=== PATIENT | female | born 1935 | race Caucasian/White ===

== ENCOUNTER 2016-06-28 22:31 | Emergency (ER) | payer OTHER ==
[~2016-06-28] VITALS: Ht 142.2 cm; Wt 50.9 kg
[~2016-06-28 22:31] MED LIST: ATEN50TA PO; HYDR25TA PO
[2016-06-28] MEDS ORDERED: ACETAMINOPHEN 325 MG TABLET PO ONE (23:00)
[2016-06-28 23:26] LABS: BASOPHILS # (AUTO) 0.02 K/uL (0.00-0.20); BASOPHILS % (AUTO) 0.2 % (0.0-2.0); EOSINOPHILS # (AUTO) 0.04 K/uL (0.00-0.70); EOSINOPHILS % (AUTO) 0.33 % (1.0-6.0); HEMOGLOBIN 11.7 g/dL (12.0-16.0); LYMPHOCYTES # (AUTO) 0.9 K/uL (1.0-4.8); LYMPHOCYTES % (AUTO) 7.7 % (22.0-44.0); MEAN CORPUSCULAR HEMOGLOBIN 30.2 pg (26.0-34.0); MEAN CORPUSCULAR HGB CONC 34.4 G/dL (31.0-37.0); MEAN CORPUSCULAR VOLUME 88 fL (80-100); MONOCYTES # (AUTO) 0.2 K/uL (0.1-1.0); MONOCYTES % (AUTO) 1.3 % (2.0-9.0); NEUTROPHILS # (AUTO) 11.1 K/uL (1.8-7.7); PLATELET COUNT (AUTO) 158 K/uL (150-450); RED BLOOD CELL COUNT(AUTO) 3.88 MIL/uL (4.00-5.20); RED CELL DISTRIBUTION WIDTH 12.4 % (11.5-14.5); WHITE BLOOD COUNT (AUTO) 12.2 K/uL (4.5-11.0)
[2016-06-28 23:27] LABS: NEUTROPHILS % (AUTO) 90.6 % (40.0-70.0)
[2016-06-28 23:36] LABS: ANION GAP 9 mmol/L (8-16); CALCIUM, TOTAL 8.5 mg/dL (8.8-10.5); CARBON DIOXIDE 28 mmol/L (22-29); CHLORIDE 99 mmol/L (98-107); CREATININE 0.89 mg/dL (0.60-1.30); GLOMERULAR FILTR. RATE CALC > 60 mL/min (>60); POTASSIUM 3.4 mmol/L (3.5-5.1); SODIUM SERUM 136 mmol/L (136-145); UREA NITROGEN, BLOOD 12 mg/dL (7-18)
[2016-06-28 23:42] LABS: ALANINE AMINOTRANSFERASE 20 U/L (12-78); ALBUMIN 3.7 g/dL (3.4-5.0); ASPARTATE AMINOTRANSFERASE 22 U/L (15-37); BILIRUBIN,TOTAL 0.7 mg/dL (0.1-1.0); CREATINE KINASE, TOTAL 70 U/L (26-192); TOTAL PROTEIN, SERUM 7.4 g/dL (6.4-8.2)
[2016-06-29 03:29] LABS: APPEARANCE,URINE CLEAR (CLEAR); GLUCOSE, URINE (UA) NEGATIVE (NEGATIVE); KETONES,URINE TRACE mg/dL (NEGATIVE); LEUKOCYTE ESTERASE ,URINE TRACE (NEGATIVE); OCCULT BLOOD,URINE NEGATIVE (NEGATIVE); PROTEIN,URINE TRACE (NEGATIVE)
[2016-06-29 03:30] LABS: ADD UA MICROSCOPIC YES
[2016-06-29 04:04] LABS: RBC,URINE 0-2 /HPF (0-2); SQUAMOUS EPITHELIAL CELL,UR Rare /LPF (None Seen)
[2016-06-29 04:36] VITALS: BP 122/63
== END 2016-06-29 04:36 | disposition home or self-care (01) ==
LOC: EMS 22:33
DX: J06.9 Acute upper respiratory infection, unspecified (principal); N39.0 Urinary tract infection, site not specified; I10 Essential (primary) hypertension
CPT/HCPCS: 83605; 87040; 93005; 99285

== ENCOUNTER 2016-09-13 00:35 | Emergency (ER) | payer OTHER ==
[~2016-09-13] VITALS: Ht 142.2 cm; Wt 52.5 kg
[2016-09-13 01:46] LABS: BASOPHILS # (AUTO) 0.03 K/uL (0.00-0.20); BASOPHILS % (AUTO) 0.3 % (0.0-2.0); EOSINOPHILS # (AUTO) 0.23 K/uL (0.00-0.70); EOSINOPHILS % (AUTO) 2.47 % (1.0-6.0); HEMATOCRIT 35.5 % (36-46); HEMOGLOBIN 12.1 g/dL (12.0-16.0); LYMPHOCYTES # (AUTO) 1.9 K/uL (1.0-4.8); LYMPHOCYTES % (AUTO) 20.1 % (22.0-44.0); MEAN CORPUSCULAR HEMOGLOBIN 30.4 pg (26.0-34.0); MEAN CORPUSCULAR VOLUME 89 fL (80-100); MONOCYTES # (AUTO) 0.8 K/uL (0.1-1.0); MONOCYTES % (AUTO) 8.5 % (2.0-9.0); NEUTROPHILS # (AUTO) 6.3 K/uL (1.8-7.7); NEUTROPHILS % (AUTO) 68.6 % (40.0-70.0); PLATELET COUNT (AUTO) 190 K/uL (150-450); RED BLOOD CELL COUNT(AUTO) 3.97 MIL/uL (4.00-5.20); RED CELL DISTRIBUTION WIDTH 12.9 % (11.5-14.5); WHITE BLOOD COUNT (AUTO) 9.2 K/uL (4.5-11.0)
[2016-09-13 02:09] LABS: CALCIUM, TOTAL 9.1 mg/dL (8.8-10.5); CREATININE 0.93 mg/dL (0.60-1.30); POTASSIUM 3.7 mmol/L (3.5-5.1)
[2016-09-13 02:14] LABS: ALBUMIN 3.7 g/dL (3.4-5.0); BILIRUBIN,TOTAL 0.5 mg/dL (0.1-1.0); TOTAL PROTEIN, SERUM 7.3 g/dL (6.4-8.2)
[2016-09-13] MEDS ORDERED: ONDANSETRON HCL 4 MG/2 ML VIAL IVP ONE (02:15)
[2016-09-13] MEDS ORDERED: SODIUM CHLORIDE 0.9% 1,000 ML IV ONE (02:15)
[2016-09-13] MEDS ORDERED: BARIUM SULFATE 0.1% SUSPENSION 450 ML BOTTLE PO ONE (02:15)
[2016-09-13] MEDS ORDERED: MORPHINE SULFATE 2 MG/ML SYRINGE IVP ONE (02:15)
[2016-09-13] MEDS ORDERED: IOVERSOL 350 MG/ML 100 ML VIAL ONE (02:33)
[2016-09-13] MEDS ORDERED: SODIUM CHLORIDE 0.9% 100 ML ONE (02:33)
[2016-09-13 03:08] LABS: APPEARANCE,URINE CLEAR (CLEAR); GLUCOSE, URINE (UA) NEGATIVE (NEGATIVE); KETONES,URINE NEGATIVE (NEGATIVE); LEUKOCYTE ESTERASE ,URINE MODERATE (NEGATIVE); OCCULT BLOOD,URINE NEGATIVE (NEGATIVE); PROTEIN,URINE NEGATIVE (NEGATIVE)
[2016-09-13 03:15] LABS: ADD UA MICROSCOPIC YES
[2016-09-13 03:32] LABS: RBC,URINE 0-2 /HPF (0-2); SQUAMOUS EPITHELIAL CELL,UR Few /LPF (None Seen)
[2016-09-13] MEDS ORDERED: MetroNIDAZOLE 500 MG/NACL 100 ML IV ONE (06:00)
[2016-09-13 07:10] VITALS: BP 138/74
== END 2016-09-13 07:48 | disposition home or self-care (01) ==
LOC: EMS 00:37
DX: K52.9 Noninfective gastroenteritis and colitis, unspecified (principal); I10 Essential (primary) hypertension
CPT/HCPCS: 36415; 74177; 80053; 81001; 83690; 84484; 85025; 87086; 93005; 96361; 96365; 96375; 99285; J2405; J3490; J7030; J7050; Q9967; J2270

== ENCOUNTER → 2017-03-19 | Outpatient (CLI) | payer OTHER | END | disposition home or self-care (01) | LOC: RADPV 09:52 | PROVIDERS: ATTEND Hospitalist | DX: N27.1 Small kidney, bilateral (principal) | CPT/HCPCS: 76770 ==

== ENCOUNTER 2021-03-21 11:14 | Emergency (ER) | payer OTHER ==
[~2021-03-21] VITALS: Ht 154.9 cm; Wt 77.3 kg
[~2021-03-21 11:14] MED LIST changes: +ATEN-72 PO; -ATEN50TA PO; -HYDR25TA PO; +HYDR25TA2 PO
[2021-03-21 11:55] VITALS: BP 162/71
== END 2021-03-21 12:09 | disposition home or self-care (01) ==
LOC: EMS 11:30
DX: K04.7 Periapical abscess without sinus (principal); I10 Essential (primary) hypertension
CPT/HCPCS: 99283; Z7502

== ENCOUNTER 2021-05-30 17:15 | Emergency (ER) | payer OTHER ==
[~2021-05-30] VITALS: Ht 162.6 cm; Wt 51.8 kg
[2021-05-30 17:22] VITALS: BP 150/63
[2021-05-30] MEDS ORDERED: PRED10 PO (17:22)
[2021-05-30] MEDS ORDERED: BACL10TA PO (17:22)
[2021-05-30] MEDS ORDERED: DICL25TA9 PO (17:22)
== END 2021-05-30 18:15 | disposition left against medical advice (07) ==
LOC: EMS 17:28
DX: R11.2 Nausea with vomiting, unspecified (principal); Z53.21 Procedure and treatment not carried out due to patient leaving prior to being seen by health care provider